=== PATIENT | female | born 1960 | race Caucasian/White ===

== ENCOUNTER → 2023-10-01 10:45 | Outpatient (REF) | payer MEDICARE, OTHER, SELFPAY | LOC: REG 10:45 | PROVIDERS: ATTENDING PHYSICIAN Internal Medicine Critical Care Medicine; FAMILY PHYSICIAN Internal Medicine | DX: R05.3 Chronic cough (principal) | CPT/HCPCS: 87070; 87102; 87116; 87205; 87206 ==

== ENCOUNTER → 2023-11-10 14:51 | Outpatient (REF) | payer MEDICARE, OTHER, SELFPAY ==
[2023-11-10 16:40] LABS: % Basophils 0.6 % (0-2); % Immature Granulocytes 0.3 % (0-0.5); % Lymphocytes 23.7 % (20.5-51.1); % Neutrophils 63.4 % (42.2-75.2); Absolute Eosinophils 0.2 10^3/uL (0-0.7); Absolute Lymphocytes 1.7 10^3/uL (1.2-3.4); Absolute Monocytes 0.6 10^3/uL (0.1-0.6); Absolute Neutrophils 4.5 10^3/uL (1.4-6.5); Hematocrit 40.5 % (37.0-47.0); Hemoglobin 13.6 g/dL (12.0-16.0); Mean Corp Hgb Conc. 33.6 g/dL (33.0-37.0); Mean Corpuscular Hgb 31.9 pg (27.0-31.0); Mean Corpuscular Volume 94.8 fL (81.0-99.0); Mean Platelet Volume 10.7 fL (7.4-10.4); Nucleated Red Blood Cells % 0 %; Platelet Count 242 10^3/uL (130-400); Red Blood Cell Count 4.27 10^6/uL (4.20-5.40); Red Cell Dist. Width 12.5 % (11.5-14.5); White Blood Cell Count 7.1 10^3/uL (4.8-10.8)
[2023-11-10 16:49] LABS: ALT (SGPT) 22 U/L (0-35); AST (SGOT) 24 U/L (14-36); Albumin 4.5 g/dl (3.5-5.0); Alkaline Phosphatase 75 U/L (38-126); Blood Urea Nitrogen 17 mg/dl (7-17); Calcium 10.5 mg/dl (8.4-10.2); Carbon Dioxide 30 mmol/L (22-30); Chloride 103 mmol/L (98-107); Glucose 106 mg/dl (70-99); Potassium 4.1 mmol/L (3.5-5.1); Sodium 140 mmol/L (135-145); Total Bilirubin 0.8 mg/dl (0.2-1.3); Total Protein 6.7 g/dl (6.3-8.2); eGFR > 60.00
[2023-11-10 17:05] LABS: Vitamin D, 25-OH*** 78.9 ng/mL (30-80)
[2023-11-10 17:47] LABS: IgA 108 mg/dl (70-400); IgG 524 mg/dl (700-1600); IgM 48 mg/dl (40-230)
[2023-11-10 19:15] LABS: Vitamin B12 > 1000 pg/ml (239-931)
[2023-11-10 20:10] LABS: Hepatitis B Core Ab, IgM Negative (Negative)
== END ==
LOC: REG 14:51
PROVIDERS: ATTENDING PHYSICIAN Psychiatry & Neurology Neurology; FAMILY PHYSICIAN Internal Medicine
DX: G35 Multiple sclerosis (principal); D84.9 Immunodeficiency, unspecified; Z79.899 Other long term (current) drug therapy; R26.9 Unspecified abnormalities of gait and mobility; R53.1 Weakness; R26.89 Other abnormalities of gait and mobility; E53.8 Deficiency of other specified B group vitamins; E55.9 Vitamin D deficiency, unspecified
CPT/HCPCS: 36415; 80053; 82306; 82607; 82784; 85025; 86355; 86357; 86359; 86360; 86705

== ENCOUNTER → 2023-11-14 06:48 | Outpatient (REF) | payer MEDICARE, OTHER, SELFPAY | LOC: MRI 06:48 | PROVIDERS: ATTENDING PHYSICIAN Psychiatry & Neurology Neurology; FAMILY PHYSICIAN Internal Medicine | DX: G35 Multiple sclerosis (principal); R26.89 Other abnormalities of gait and mobility; R26.9 Unspecified abnormalities of gait and mobility; R53.1 Weakness; R20.0 Anesthesia of skin; D84.9 Immunodeficiency, unspecified; Z79.899 Other long term (current) drug therapy | CPT/HCPCS: 70551 ==

== ENCOUNTER → 2024-02-22 13:48 | Outpatient (REF) | payer MEDICARE, OTHER, SELFPAY ==
[2024-02-22 15:49] LABS: TSH Reflex To Free T4 1.09 uIU/ml (0.47-4.68)
== END ==
LOC: RAD 13:48
PROVIDERS: ATTENDING PHYSICIAN Internal Medicine
DX: R09.89 Other specified symptoms and signs involving the circulatory and respiratory systems (principal); R53.82 Chronic fatigue, unspecified
CPT/HCPCS: 36415; 70486; 84443

== ENCOUNTER → 2024-05-25 16:11 | Outpatient (REF) | payer MEDICARE, OTHER, SELFPAY ==
[2024-05-25 18:08] LABS: ALT (SGPT) 18 U/L (0-35); AST (SGOT) 22 U/L (14-36); Albumin 4.4 g/dl (3.5-5.0); Alkaline Phosphatase 113 U/L (38-126); Blood Urea Nitrogen 19 mg/dl (7-17); Calcium 10.7 mg/dl (8.4-10.2); Carbon Dioxide 33 mmol/L (22-30); Chloride 99 mmol/L (98-107); Glucose 102 mg/dl (70-99); Potassium 4.3 mmol/L (3.5-5.1); Sodium 139 mmol/L (135-145); Total Bilirubin 0.6 mg/dl (0.2-1.3); eGFR > 60.00
[2024-05-25 18:15] LABS: % Basophils 0.4 % (0-2); % Eosinophils 1.5 % (0-6); % Immature Granulocytes 0.2 % (0-0.5); % Lymphocytes 20.8 % (20.5-51.1); % Monocytes 12.3 % (1.7-9.3); % Neutrophils 64.8 % (42.2-75.2); Absolute Eosinophils 0.1 10^3/uL (0-0.7); Absolute Lymphocytes 1.7 10^3/uL (1.2-3.4); Absolute Neutrophils 5.4 10^3/uL (1.4-6.5); Hematocrit 41.6 % (37.0-47.0); Hemoglobin 13.2 g/dL (12.0-16.0); Mean Corp Hgb Conc. 31.7 g/dL (33.0-37.0); Mean Corpuscular Hgb 29.7 pg (27.0-31.0); Mean Corpuscular Volume 93.7 fL (81.0-99.0); Mean Platelet Volume 10.5 fL (7.4-10.4); Nucleated Red Blood Cells % 0 %; Platelet Count 291 10^3/uL (130-400); Red Blood Cell Count 4.44 10^6/uL (4.20-5.40); Red Cell Dist. Width 13.6 % (11.5-14.5); White Blood Cell Count 8.2 10^3/uL (4.8-10.8)
[2024-05-25 18:26] LABS: Vitamin D, 25-OH*** 55.5 ng/mL (30-80)
[2024-05-25 18:45] LABS: Hepatitis B Surface Antigen Negative (Negative)
[2024-05-25 18:58] LABS: Vitamin B12 > 1000 pg/ml (239-931)
[2024-05-25 19:03] LABS: Hepatitis B Surface Antibody Negative; Hepatitis C Antibody Negative (Negative)
[2024-05-27 23:23] LABS: IgA 115 mg/dl (70-400); IgG 573 mg/dl (700-1600); IgM 47 mg/dl (40-230)
== END ==
LOC: REG 16:11
PROVIDERS: ATTENDING PHYSICIAN Psychiatry & Neurology Neurology; FAMILY PHYSICIAN Internal Medicine
DX: G35 Multiple sclerosis (principal); R26.9 Unspecified abnormalities of gait and mobility; R53.1 Weakness; R26.89 Other abnormalities of gait and mobility; R27.9 Unspecified lack of coordination; R20.0 Anesthesia of skin; G93.32 Myalgic encephalomyelitis/chronic fatigue syndrome; D84.9 Immunodeficiency, unspecified; Z79.899 Other long term (current) drug therapy; E55.9 Vitamin D deficiency, unspecified
CPT/HCPCS: 36415; 80053; 82306; 82607; 82784; 85025; 86706; 86803; 87340

== ENCOUNTER 2024-08-01 06:11 | Day surgery (SDC) | payer MEDICARE, OTHER, SELFPAY ==
[2024-08-01] VITALS (8 sets, daily range): BP systolic 104–133; BP diastolic 60–92; BMI 21.5
[2024-08-01] MEDS: TYLENOL 1000 MG PO (07:28)
[2024-08-01] MEDS: NORMOSOL-R/PLASMALYTE-A 1000 IV (07:47)
== END 2024-08-01 12:04 | disposition home or self-care (01) ==
LOC: SDS 06:11
PROVIDERS: ATTENDING PHYSICIAN Otolaryngology
DX: D48.5 Neoplasm of uncertain behavior of skin (principal); J34.2 Deviated nasal septum; J32.9 Chronic sinusitis, unspecified; H65.21 Chronic serous otitis media, right ear
CPT/HCPCS: 31257; 30520; 31256; 30130; 69436; 88304; 88311; 87070; 87075; 87077; 87147; 87185; 87205; L8699

== ENCOUNTER → 2024-11-06 12:20 | Outpatient (REF) | payer MEDICARE, OTHER, SELFPAY | LOC: WDC 12:20 | PROVIDERS: ATTENDING PHYSICIAN Internal Medicine; REFERRING PHYSICIAN Surgery | DX: Z12.31 Encounter for screening mammogram for malignant neoplasm of breast (principal) | CPT/HCPCS: 77063; 77067 ==